=== PATIENT | female | born 1950 | race Caucasian/White ===

== ENCOUNTER 2024-01-13 14:27 | Outpatient (REF) | payer OTHER, SELFPAY ==
[2024-01-13 16:11] VITALS: BP 188/86; PULSE 50; RESP 16; TEMP 36; O2SAT 98; BMI 32.0
== END 2024-01-13 14:28 | disposition home or self-care (01) ==
LOC: HO.MS 14:27
PROVIDERS: Visit Provider Ophthalmology
PROC: (CPT 66821; principal; 2024-01-13 14:40)
DX: H26.492 Other secondary cataract, left eye (principal)
CPT/HCPCS: 66821